=== PATIENT | male | born 1980 | race African-American/Black ===

== ENCOUNTER 2023-03-06 23:16 | Emergency (ER) | payer SELFPAY ==
[~2023-03-06] VITALS: Ht 175.3 cm; Wt 82.0 kg
[2023-03-06 23:19] VITALS: BP 153/111; PULSE 83; RESP 20; TEMP 98.9; O2SAT 100
== END 2023-03-06 23:28 | disposition left against medical advice (07) ==
LOC: ER 23:27
DX: I83.029 Varicose veins of left lower extremity with ulcer of unspecified site (principal); Z59.00 Homelessness unspecified
CPT/HCPCS: 99283